=== PATIENT | female | born 1995 | race Caucasian/White ===

== ENCOUNTER 2018-01-31 12:11 | Emergency (ER) | payer OTHER, SELFPAY ==
[2018-01-31 12:31] VITALS: BP 129/76; PULSE 110; RESP 18; TEMP 36.9; O2SAT 100; BMI 20.6
[2018-01-31 14:29] VITALS: BP 131/72; PULSE 97; RESP 16; O2SAT 100
--- NOTE | 2018-01-31 14:37 | ED.NAVMDI ---
HPI - Nausea/Vomiting/Diarrhea <FAM Bernal - Last Filed: 01/31/18 18:22> General Chief complaint: Nausea/Vomiting/Diarrhea Stated complaint: FEELS FAINT/SHIVERING Time Seen by Provider: 01/31/18 14:37 Source: patient and family Mode of arrival: ambulatory Limitations: no limitations History of Present Illness HPI Narrative: The patient had sudden onset of nausea vomiting diarrhea at 11:00 a.m. this morning. She denies any fevers or abdominal pain. She states she was drinking [employer] lemonade all day yesterday from approximately noon until 4:00 a.m.. She states she woke up at approximately 10:00 a.m.. She was eating breakfast or a medial at a fish rest strong and felt sudden onset of weakness nausea vomiting. She had 3 episodes of diarrhea but denies blood. She denies any coughing, shortness of breath, chest pain ear pain sore throat. Upon coming back from waiting room, she states she feels much improved and that she drink about 3 bottles of water as well as some Powerade. She is requesting to go home. She no longer complains of nausea. Related Data Home Medications Medication Instructions Recorded Confirmed venlafaxine 37.5 mg PO DAILY 01/31/18 01/31/18 Allergies Allergy/AdvReac Type Severity Reaction Status Date / Time No Known Drug Allergies Allergy Verified 01/31/18 12:38 Review of Systems <FAM Bernal - Last Filed: 01/31/18 18:22> Review of Systems GENERAL: See HPI HEENT: Denies sinus pain, ear pain, sore throat, difficulty swallowing, dizziness. RESPIRATORY: Denies dyspnea, cough, wheezing, hemoptysis, sputum. CARDIOVASCULAR: Denies chest pain, palpitations, orthopnea, edema, GASTROINTESTINAL: See HPI. : Denies dysuria, frequency, incontinence, hematuria, urinary retention. Last menstrual period middle of December MUSCULOSKELETAL: denies weakness, joint pain, or bony pain SKIN: Denies rash, skin lesions, or other NEUROLOGIC: Denies weakness, headache, numbness, change in speech, confusion, seizures, incoordination. PSYCHIATRIC: No concerning psychosocial issues. 12 point review of systems is negative except for those stated above Exam <FAM Bernal - Last Filed: 01/31/18 18:22> Narrative Exam Narrative: GENERAL: This is a well-nourished, well-developed patient, in no acute distress drinking water with father at bedside HEAD: Atraumatic. Normocephalic. No temporal or scalp tenderness. EYES: Pupils equal round and reactive. Extraocular motions intact. No scleral icterus. No injection or drainage. ENT: Nose without bleeding, purulent drainage or septal hematoma. Throat without erythema, tonsillar hypertrophy or exudate. Uvula midline. Airway patent. NECK: Trachea midline. No JVD or lymphadenopathy. Supple, nontender, no meningeal signs. CARDIOVASCULAR: Regular rate and rhythm without murmurs, gallops, or rubs. RESPIRATORY: Clear to auscultation. Breath sounds equal bilaterally. No wheezes, rales, or rhonchi. GASTROINTESTINAL: Abdomen soft, non-tender, nondistended. No hepato-splenomegaly, or palpable masses. No guarding. No rigidity. Active bowel sounds 4 quadrants. EXTREMITIES: No clubbing, cyanosis, or edema. No joint tenderness, effusion, or edema noted. BACK: Nontender without deformity or crepitance. No flank tenderness. NEURO: AOx3. SKIN: No rash or erythema. Initial Vital Signs Initial Vital Signs: Vital Signs Temperature 98.5 F 01/31/18 12:31 Pulse Rate 110 H 01/31/18 12:31 Respiratory Rate 18 01/31/18 12:31 Blood Pressure 129/76 H 01/31/18 12:31 Pulse Oximetry 100 01/31/18 12:31 <Aubrey Gray MD - Last Filed: 02/01/18 08:42> Initial Vital Signs Initial Vital Signs: Vital Signs Temperature 98.5 F 01/31/18 12:31 Pulse Rate 110 H 01/31/18 12:31 Respiratory Rate 18 01/31/18 12:31 Blood Pressure 129/76 H 01/31/18 12:31 Pulse Oximetry 100 01/31/18 12:31 Course <MARKUS Bernal-BC - Last Filed: 01/31/18 18:22> Additional Information: The patient presented with nausea vomiting diarrhea. She states that these result while she was in the waiting room. She has been drinking fluids. She does not want any lab work at this time and declined an IV and lab work. She did consent to a urinalysis as well as a urine both of which came back negative. The patient stated she wanted to go home. I discussed return precautions of fever, abdominal pain worsening or no improvement. State patient stated she would come back if necessary. Orders Ordered: ED Orders 01/31/18 12:35 Complete Blood Count AUTO DIFF Stat Comprehensive Metabolic Panel Stat Lactate (Lactic Acid) Stat Lipase Stat Procalcitonin Stat 01/31/18 14:48 Urinalysis and Microscopic Stat Vital Signs - 8 hr 01/31/18 12:31 01/31/18 14:29 Temperature 98.5 F Pulse Rate 110 H 97 H Respiratory Rate 18 16 Blood Pressure 129/76 H Blood Pressure [Left Arm] 131/72 H Pulse Oximetry 100 100 <Aubrey Gray MD - Last Filed: 02/01/18 08:42> Orders Ordered: ED Orders 01/31/18 12:35 Complete Blood Count AUTO DIFF Stat Comprehensive Metabolic Panel Stat Lactate (Lactic Acid) Stat Lipase Stat Procalcitonin Stat 01/31/18 14:48 Urinalysis and Microscopic Stat Vital Signs - 8 hr 01/31/18 12:31 01/31/18 14:29 Temperature 98.5 F Pulse Rate 110 H 97 H Respiratory Rate 18 16 Blood Pressure 129/76 H Blood Pressure [Left Arm] 131/72 H Pulse Oximetry 100 100 MDM - Nausea/Vomiting/Diarrhea <FAM Bernal - Last Filed: 01/31/18 18:22> [facility] Narrative Medical decision making narrative: The patient presented with nausea vomiting and diarrhea after drinking lots of alcohol yesterday. She had a negative urinalysis and urine test in the emergency department. She is hemodynamically stable with stable vital signs in ambulating well in the emergency department. She was tolerating fluids very well and drank several bottles of water while she was waiting. She declined any lab work or IVs in the emergency department. I discussed at length with her follow-up if worsening, no improvement, abdominal pain or fever. Patient stated she had no questions or concerns. Her plan is to rest and push fluids and not drink any alcohol today. Discharge Plan Departure Patient Disposition: Home, Self-Care Clinical Impression: Nausea & vomiting, Diarrhea Discharge Date/Time: 01/31/18 15:36 Interventions: ED Discharge Assessment Last Done: 01/31/18 15:35 Instructions: DI for Diarrhea and Traveler's Diarrhea -- Adult, Nausea and Vomiting-Adult Activity Restrictions/Additional Instructions: You came to the emergency department today because you were having nausea, vomiting and diarrhea. Your urine came back normal. You declined lab work or any further workup today because you were feeling better. Come back to the emergency department if you do not feel any better, feel worse, or are unable to take down fluids. I suggest you rest, drink plenty of fluids and eat simple foods. Come back to the emergency department if you need to or follow up with your primary care provider. Prescriptions: No Action venlafaxine 37.5 mg Capsule,Extended Release 24hr 37.5 mg PO DAILY RF: 0 <Aubrey Gray MD - Last Filed: 02/01/18 08:42> Sign Out Provider Sign Out Attestation: The PA/POULTRY HUSBANDRY TEACHER functioned independently for the care of this pt, I was available, but not asked to participate in care. I am unable to determine appropriateness of management without personally examining the pt.
--- NOTE | 2018-01-31 15:15 | ED_ITS ---
HPI - Nausea/Vomiting/Diarrhea <FAM Bernal - Last Filed: 01/31/18 18:22> General Chief complaint: Nausea/Vomiting/Diarrhea Stated complaint: FEELS FAINT/SHIVERING Time Seen by Provider: 01/31/18 14:37 Source: patient and family Mode of arrival: ambulatory Limitations: no limitations History of Present Illness HPI Narrative: The patient had sudden onset of nausea vomiting diarrhea at 11: 00 a.m. this morning. She denies any fevers or abdominal pain. She states she was drinking [employer] lemonade all day yesterday from approximately noon until 4:00 a.m.. She states she woke up at approximately 10:00 a.m.. She was eating breakfast or a medial at a fish rest strong and felt sudden onset of weakness nausea vomiting. She had 3 episodes of diarrhea but denies blood. She denies any coughing, shortness of breath, chest pain ear pain sore throat. Upon coming back from waiting room, she states she feels much improved and that she drink about 3 bottles of water as well as some Powerade. She is requesting to go home. She no longer complains of nausea. Related Data Home Medications Medication Instructions Recorded Confirmed venlafaxine 37.5 mg PO DAILY 01/31/18 01/31/18 Allergies Allergy/AdvReac Type Severity Reaction Status Date / Time No Known Drug Allergies Allergy Verified 01/31/18 12:38 Review of Systems <FAM Bernal - Last Filed: 01/31/18 18:22> Review of Systems GENERAL: See HPI HEENT: Denies sinus pain, ear pain, sore throat, difficulty swallowing, dizziness. RESPIRATORY: Denies dyspnea, cough, wheezing, hemoptysis, sputum. CARDIOVASCULAR: Denies chest pain, palpitations, orthopnea, edema, GASTROINTESTINAL: See HPI. : Denies dysuria, frequency, incontinence, hematuria, urinary retention. Last menstrual period middle of December MUSCULOSKELETAL: denies weakness, joint pain, or bony pain SKIN: Denies rash, skin lesions, or other NEUROLOGIC: Denies weakness, headache, numbness, change in speech, confusion, seizures, incoordination. PSYCHIATRIC: No concerning psychosocial issues. 12 point review of systems is negative except for those stated above Exam <FAM Bernal - Last Filed: 01/31/18 18:22> Narrative Exam Narrative: GENERAL: This is a well-nourished, well-developed patient, in no acute distress drinking water with father at bedside HEAD: Atraumatic. Normocephalic. No temporal or scalp tenderness. EYES: Pupils equal round and reactive. Extraocular motions intact. No scleral icterus. No injection or drainage. ENT: Nose without bleeding, purulent drainage or septal hematoma. Throat without erythema, tonsillar hypertrophy or exudate. Uvula midline. Airway patent. NECK: Trachea midline. No JVD or lymphadenopathy. Supple, nontender, no meningeal signs. CARDIOVASCULAR: Regular rate and rhythm without murmurs, gallops, or rubs. RESPIRATORY: Clear to auscultation. Breath sounds equal bilaterally. No wheezes , rales, or rhonchi. GASTROINTESTINAL: Abdomen soft, non-tender, nondistended. No hepato-splenomegaly , or palpable masses. No guarding. No rigidity. Active bowel sounds 4 quadrants. EXTREMITIES: No clubbing, cyanosis, or edema. No joint tenderness, effusion, or edema noted. BACK: Nontender without deformity or crepitance. No flank tenderness. NEURO: AOx3. SKIN: No rash or erythema. Initial Vital Signs Initial Vital Signs: Vital Signs Temperature 98.5 F 01/31/18 12:31 Pulse Rate 110 H 01/31/18 12:31 Respiratory Rate 18 01/31/18 12:31 Blood Pressure 129/76 H 01/31/18 12:31 Pulse Oximetry 100 01/31/18 12:31 <Aubrey Gray MD - Last Filed: 02/01/18 08:42> Initial Vital Signs Initial Vital Signs: Vital Signs Temperature 98.5 F 01/31/18 12:31 Pulse Rate 110 H 01/31/18 12:31 Respiratory Rate 18 01/31/18 12:31 Blood Pressure 129/76 H 01/31/18 12:31 Pulse Oximetry 100 01/31/18 12:31 Course <MARKUS Bernal-BC - Last Filed: 01/31/18 18:22> Additional Information: The patient presented with nausea vomiting diarrhea. She states that these result while she was in the waiting room. She has been drinking fluids. She does not want any lab work at this time and declined an IV and lab work. She did consent to a urinalysis as well as a urine both of which came back negative. The patient stated she wanted to go home. I discussed return precautions of fever, abdominal pain worsening or no improvement. State patient stated she would come back if necessary. Orders Ordered: ED Orders 01/31/18 12:35 Complete Blood Count AUTO DIFF Stat Comprehensive Metabolic Panel Stat Lactate (Lactic Acid) Stat Lipase Stat Procalcitonin Stat 01/31/18 14:48 Urinalysis and Microscopic Stat Vital Signs - 8 hr 01/31/18 12:31 01/31/18 14:29 Temperature 98.5 F Pulse Rate 110 H 97 H Respiratory Rate 18 16 Blood Pressure 129/76 H Blood Pressure [Left Arm] 131/72 H Pulse Oximetry 100 100 <Aubrey Gray MD - Last Filed: 02/01/18 08:42> Orders Ordered: ED Orders 01/31/18 12:35 Complete Blood Count AUTO DIFF Stat Comprehensive Metabolic Panel Stat Lactate (Lactic Acid) Stat Lipase Stat Procalcitonin Stat 01/31/18 14:48 Urinalysis and Microscopic Stat Vital Signs - 8 hr 01/31/18 12:31 01/31/18 14:29 Temperature 98.5 F Pulse Rate 110 H 97 H Respiratory Rate 18 16 Blood Pressure 129/76 H Blood Pressure [Left Arm] 131/72 H Pulse Oximetry 100 100 MDM - Nausea/Vomiting/Diarrhea <FAM Bernal - Last Filed: 01/31/18 18:22> [facility] Narrative Medical decision making narrative: The patient presented with nausea vomiting and diarrhea after drinking lots of alcohol yesterday. She had a negative urinalysis and urine test in the emergency department. She is hemodynamically stable with stable vital signs in ambulating well in the emergency department. She was tolerating fluids very well and drank several bottles of water while she was waiting. She declined any lab work or IVs in the emergency department. I discussed at length with her follow-up if worsening, no improvement, abdominal pain or fever. Patient stated she had no questions or concerns. Her plan is to rest and push fluids and not drink any alcohol today. Discharge Plan Departure Patient Disposition: Home, Self-Care Clinical Impression: Nausea & vomiting, Diarrhea Discharge Date/Time: 01/31/18 15:36 Interventions: ED Discharge Assessment Last Done: 01/31/18 15:35 Instructions: DI for Diarrhea and Traveler's Diarrhea -- Adult, Nausea and Vomiting-Adult Activity Restrictions/Additional Instructions: You came to the emergency department today because you were having nausea, vomiting and diarrhea. Your urine came back normal. You declined lab work or any further workup today because you were feeling better. Come back to the emergency department if you do not feel any better, feel worse, or are unable to take down fluids. I suggest you rest, drink plenty of fluids and eat simple foods. Come back to the emergency department if you need to or follow up with your primary care provider. Prescriptions: No Action venlafaxine 37.5 mg Capsule,Extended Release 24hr 37.5 mg PO DAILY RF: 0 <Aubrey Gray MD - Last Filed: 02/01/18 08:42> Sign Out Provider Sign Out Attestation: The PA/[employer] ROBOTICIST functioned independently for the care of this pt, I was available, but not asked to participate in care. I am unable to determine appropriateness of management without personally examining the pt.
== END 2018-01-31 15:36 | disposition home or self-care (01) ==
PROVIDERS: Emergency Provider Nurse Practitioner Family
DX: R11.2 Nausea with vomiting, unspecified (principal); R19.7 Diarrhea, unspecified
CPT/HCPCS: 81003; 81025; 99282